=== PATIENT | female | born 1980 | race African-American/Black ===

== ENCOUNTER 2020-08-15 01:03 | Inpatient (IN) | payer MEDICAID, OTHER ==
[2020-08-15] VITALS (21 sets, daily range): BP systolic 106–146; BP diastolic 49–93
[~2020-08-15] VITALS: Ht 175.3 cm; Wt 160.8 kg
[~2020-08-15 01:03] MED LIST: Aspirin PO; LEVO500T2 PO; LIP40 PO; MICO1POW2 MC
[2020-08-15] MEDS ORDERED: IOHEXOL-350 100 ML BOTTLE ONE (01:32)
[2020-08-15 02:18] LABS: HEMATOCRIT. 22.3 % (36.0-48.0); MEAN CORPUSCULAR HEMOGLOBIN 15.4 pg (28.0-32.0); MEAN CORPUSCULAR VOLUME 53.3 fL (81.0-99.0); MEAN PLATELET VOLUME 8.5 fl (7.4-10.4); PLATELET 322 x1000/uL (130-400); RED BLOOD CELL COUNT 4.18 mill/uL (4.2-5.4); RED CELL DISTRIBUTION WIDTH 21.6 % (11.6-14.6)
[2020-08-15 02:25] LABS: HEMOGLOBIN. 6.4 g/dL (12.0-16.0)
[2020-08-15 02:26] LABS: PROTHROMBIN TIME 10.6 sec (9.6-11.0)
[2020-08-15 02:35] LABS: CHLORIDE 110 mEq/L (98-107)
[2020-08-15 02:39] LABS: ETHANOL BLOOD 48 mg/dL
[2020-08-15 02:42] LABS: LDL CHOLESTEROL 61 mg/dL (5-100)
[2020-08-15 02:44] LABS: CLARITY URINE CLEAR (CLEAR); COLOR URINE YELLOW (YELLOW); KETONES URINE NEGATIVE (NEGATIVE); LEUKOCYTE ESTERASE URINE TRACE (NEGATIVE); NITRITE URINE NEGATIVE (NEGATIVE); OCCULT BLOOD URINE NEGATIVE (NEGATIVE); PH URINE 5.5 (4.5-8.0); PROTEIN URINE NEGATIVE (NEGATIVE); SPECIFIC GRAVITY URINE 1.022 (1.005-1.030); UROBILINOGEN URINE 0.2 E.U./dL (0.2-1.0)
[2020-08-15 02:52] LABS: HCG SCREEN NEGATIVE
[2020-08-15 02:53] LABS: *BARBITURATES SCREEN URINE NEGATIVE (NEGATIVE); *BENZODIAZEPINES SCREEN URINE NEGATIVE (NEGATIVE); *COCAINE SCREEN URINE NEGATIVE (NEGATIVE); METHADONE URINE SCREEN NEGATIVE (NEGATIVE); OPIATES URINE SCREEN NEGATIVE (NEGATIVE)
[2020-08-15 02:54] LABS: PHENCYCLIDINE URINE SCREEN NEGATIVE (NEGATIVE)
[2020-08-15 03:25] LABS: *AMPHETAMINES SCREEN URINE PRESUMTIVE POSITIVE (NEGATIVE); CANNABINOID URINE SCREEN PRESUMTIVE POSITIVE (NEGATIVE)
[2020-08-15 03:50] LABS: PLATELET ESTIMATE NORMAL
[2020-08-15] MEDS ORDERED: ASPIRIN 325MG TABLET PO ONE (04:30)
[2020-08-15] MEDS ORDERED: ONDANSETRON HCL 4MG/2ML INJ IV PRN (14:00)
[2020-08-15] MEDS: ACETAMINOPHEN 325MG TABLET PO PRN (16:54)
[2020-08-16] VITALS (12 sets, daily range): BP systolic 109–136; BP diastolic 41–90
[2020-08-16 00:29] LABS: HEMATOCRIT 26.1 % (36.0-48.0); HEMOGLOBIN 7.8 g/dL (12.0-16.0)
[2020-08-16 00:47] LABS: PROTHROMBIN TIME 11.1 sec (9.6-11.0)
[2020-08-16 05:47] LABS: CHLORIDE 111 mEq/L (98-107)
[2020-08-16 05:57] LABS: BASOPHILS % 0.7 % (0.0-2.0); EOSINOPHILS % 2.9 % (0.0-5.0); HEMATOCRIT. 27.4 % (36.0-48.0); HEMOGLOBIN. 8.2 g/dL (12.0-16.0); LYMPHOCYTES % 27.8 % (20.0-50.0); MEAN CORPUSCULAR VOLUME 56.5 fL (81.0-99.0); MEAN PLATELET VOLUME 8.6 fl (7.4-10.4); MONOCYTES % 8.1 % (2.0-8.0); NEUTROPHILS % 60.5 % (40.0-76.0); PLATELET 332 x1000/uL (130-400); RED BLOOD CELL COUNT 4.84 mill/uL (4.2-5.4); RED CELL DISTRIBUTION WIDTH 25.4 % (11.6-14.6)
[2020-08-16 06:04] LABS: LDL CHOLESTEROL 68 mg/dL (5-100)
[2020-08-16 06:06] LABS: HDL CHOLESTEROL 42 mg/dL (40-59)
[2020-08-16] MEDS: ACETAMINOPHEN 325MG TABLET PO PRN ×2 (10:18→19:25)
[2020-08-16 11:16] LABS: TOTAL IRON BINDING CAPACITY 408 ug/dL (250-450)
[2020-08-16 21:32] LABS: T4 FREE 0.92 ng/dL (0.76-1.46)
[2020-08-16 21:44] LABS: FOLIC ACID (FOLATE) SERUM 9.3 ng/mL (>5.38)
[2020-08-17] VITALS (11 sets, daily range): BP systolic 107–136; BP diastolic 61–86
[2020-08-17] MEDS: MULTIVITAMINS,THER W-MINERALS TABLET PO SCH (08:30)
[2020-08-17] MEDS: THIAMINE HCL 100MG TABLET PO SCH (08:30)
[2020-08-17] MEDS: FOLIC ACID 1MG TABLET PO SCH (08:30)
[2020-08-17] MEDS: ACETAMINOPHEN 325MG TABLET PO PRN ×2 (08:30→17:32)
[2020-08-17] MEDS: CYANOCOBALAMIN 1000MCG/ML VIAL IM SCH (13:31)
[2020-08-17] MEDS ORDERED: ATORVASTATIN CALCIUM 40MG TABLET PO SCH (21:00)
[2020-08-18] VITALS: BP_SYST 101; BP_SYST 95; BP_DIAS 61; BP_DIAS 62
[2020-08-18 02:00] VITALS: BP 115/63
[2020-08-18 04:00] VITALS: BP 123/78
[2020-08-18 08:00] VITALS: BP 107/52
[2020-08-18] MEDS: CYANOCOBALAMIN 1000MCG/ML VIAL IM SCH (08:01)
[2020-08-18] MEDS: FOLIC ACID 1MG TABLET PO SCH (08:01)
[2020-08-18] MEDS: MULTIVITAMINS,THER W-MINERALS TABLET PO SCH (08:01)
[2020-08-18] MEDS: ACETAMINOPHEN 325MG TABLET PO PRN (08:01)
[2020-08-18] MEDS ORDERED: LIP40 PO (11:38)
[2020-08-18] MEDS ORDERED: FOLI-43 PO (11:38)
[2020-08-18] MEDS ORDERED: THIA100T72 PO (11:38)
[2020-08-18 12:00] VITALS: BP 137/71
[2020-08-18] MEDS: THIAMINE HCL 100MG TABLET PO SCH (12:31)
[2020-08-18 12:49] VITALS: BP 137/71
[2020-08-19 12:14] LABS: ANTI-THROMBIN ACTIVITY 97 % (75-135); PROTEIN C FUNCTIONAL 79 % (73-180)
[2020-08-19 14:01] LABS: LUPUS ANTICOAG INTERPRETATION Comment: (.); PTT-LA 32.2 sec (0.0-51.9)
[2020-08-19 14:06] LABS: DRVVT LA 30.7 sec (0.0-47.0)
[2020-08-20 04:07] LABS: ANTI-CARDIOLIPIN AB IGA < 9 APL U/mL (0-11); ANTI-CARDIOLIPIN AB IGG < 9 GPL U/mL (0-14); ANTI-CARDIOLIPIN AB IGM 10 MPL U/mL (0-12)
[2020-08-23 17:06] LABS: 25-HYDROXY VITAMIN D3 5.8 ng/mL (.)
== END 2020-08-18 16:52 | disposition home or self-care (01) | DRG 47 ==
LOC: ER 01:03 → 5EST 03:57 → EDBEDREQTM 04:04 → EDBEDREQ 04:04 → ENRESERV 09:12
PROVIDERS: ADMIT Internal Medicine; ATTEND Internal Medicine
PROC: 30233N1 Transfusion of Nonautologous Red Blood Cells into Peripheral Vein, Percutaneous Approach (ICD-10-PCS; principal; 2020-08-15)
DX: G45.9 Transient cerebral ischemic attack, unspecified (principal); E87.8 Other disorders of electrolyte and fluid balance, not elsewhere classified; G81.94 Hemiplegia, unspecified affecting left nondominant side; F50.89 Other specified eating disorder; D50.0 Iron deficiency anemia secondary to blood loss (chronic); F10.10 Alcohol abuse, uncomplicated; R47.01 Aphasia; Z68.43 Body mass index [BMI] 50.0-59.9, adult; F15.90 Other stimulant use, unspecified, uncomplicated; D64.9 Anemia, unspecified; E78.00 Pure hypercholesterolemia, unspecified; G51.0 Bell's palsy; I10 Essential (primary) hypertension; Y90.2 Blood alcohol level of 40-59 mg/100 ml; N92.0 Excessive and frequent menstruation with regular cycle; R26.89 Other abnormalities of gait and mobility; F10.129 Alcohol abuse with intoxication, unspecified; F17.210 Nicotine dependence, cigarettes, uncomplicated; E66.9 Obesity, unspecified; Z86.73 Personal history of transient ischemic attack (TIA), and cerebral infarction without residual deficits; Z79.2 Long term (current) use of antibiotics; Z79.82 Long term (current) use of aspirin; Z79.899 Other long term (current) drug therapy; F19.10 Other psychoactive substance abuse, uncomplicated; M79.609 Pain in unspecified limb; R47.1 Dysarthria and anarthria; E53.8 Deficiency of other specified B group vitamins; Z71.41 Alcohol abuse counseling and surveillance of alcoholic; Z71.51 Drug abuse counseling and surveillance of drug abuser; F12.90 Cannabis use, unspecified, uncomplicated
CPT/HCPCS: 36415; 70496; 70498; 71045; 80048; 80053; 80061; 80305; 80320; 81003; 81400; 81403; 81407; 81479; 82270; 82306; 82607; 82746; 83036; 83540; 83550; 83721; 84439; 84443; 84481; 84484; 84703; 85014; 85018; 85025; 85049; 85300; 85303; 85306; 85384; 85613; 85732; 86147; 86850; 86900; 86920; 92610; 93005; 93306; 93880; 93970; 97162; 97166; 99285; J3420; P9016; Q9967; G0480

== ENCOUNTER 2023-08-15 08:13 | Emergency (ER) | payer MEDICAID ==
[~2023-08-15] VITALS: Ht 175.3 cm; Wt 170.0 kg
[~2023-08-15 08:13] MED LIST changes: +FOLI-43 PO; +THIA100T72 PO
[2023-08-15 08:26] VITALS: O2SAT 98
[2023-08-15] MEDS: IBUPROFEN 800MG TABLET PO ONE (09:00)
[2023-08-15] MEDS ORDERED: MELO-104 MT (10:47)
[2023-08-15 11:17] VITALS: BP 112/58; PULSE 87; RESP 18; TEMP 98.3
== END 2023-08-15 11:22 | disposition home or self-care (01) ==
LOC: ER 08:13
DX: M17.12 Unilateral primary osteoarthritis, left knee (principal); F12.90 Cannabis use, unspecified, uncomplicated; Z86.73 Personal history of transient ischemic attack (TIA), and cerebral infarction without residual deficits
CPT/HCPCS: 73562; 81025; 99283